=== PATIENT | male | born 1950 | race Caucasian/White ===

== ENCOUNTER 2017-02-16 04:38 | Day surgery (SDC) | payer OTHER, MEDICARE ==
[~2017-02-16 04:38] MED LIST: C5; CEFT5 PO; LIPITOR20 PO; MULTIPLE VIT PO; NIACIN 500 PO; NORCO1 TA1 PO; NORCO1 TA2 PO; PCET PO; PRIN20 PO; T PO; TESTOSTERONE; ZESTORETIC PO; [UNRECOGNIZED DRUG - OTHER]
== END 2017-02-16 07:23 | disposition home or self-care (01) ==
LOC: SDC 04:38
PROVIDERS: Orthopaedic Surgery Orthopaedic Surgery of the Spine
PROC: 3E0S3BZ Introduction of Anesthetic Agent into Epidural Space, Percutaneous Approach (ICD-10-PCS; 2017-02-16)
PROC: B01B1ZZ Fluoroscopy of Spinal Cord using Low Osmolar Contrast (ICD-10-PCS; 2017-02-16)
PROC: 3E0S33Z Introduction of Anti-inflammatory into Epidural Space, Percutaneous Approach (ICD-10-PCS; principal; 2017-02-16 07:15)
DX: M51.17 Intervertebral disc disorders with radiculopathy, lumbosacral region (principal); I10 Essential (primary) hypertension; E78.00 Pure hypercholesterolemia, unspecified; H26.9 Unspecified cataract; M19.90 Unspecified osteoarthritis, unspecified site; Z87.891 Personal history of nicotine dependence; Z87.01 Personal history of pneumonia (recurrent); Z96.653 Presence of artificial knee joint, bilateral; Z79.899 Other long term (current) drug therapy; Z98.890 Other specified postprocedural states
CPT/HCPCS: 77003; J2250; J3010; Q9967